=== PATIENT | female | born 1960 | race Caucasian/White ===

== ENCOUNTER → 2018-02-01 | Outpatient (CLI) | payer BC | LOC: COL.LAB 01-30 11:03 | DX: Z01.812 Encounter for preprocedural laboratory examination (principal) ==

== ENCOUNTER → 2021-04-30 | Outpatient (CLI) | payer BC | LOC: COL.RAD 04-27 11:45 | DX: M25.551 Pain in right hip (principal) | CPT/HCPCS: J3301; Q9967 ==

== ENCOUNTER → 2021-07-27 | Outpatient (CLI) | payer BC | LOC: COL.RAD 07-22 09:15 | DX: M25.551 Pain in right hip (principal); Z96.641 Presence of right artificial hip joint | CPT/HCPCS: A9503 ==